=== PATIENT | female | born 2000 ===

== ENCOUNTER 2021-08-14 20:31 | Emergency (ER) | payer SELFPAY ==
[2021-08-14] MEDS ORDERED: IBUPROFEN 800 MG TAB PO ONE (23:04)
--- NOTE | 2021-08-14 23:23 | Emergency Department Report ---
ED General Adult HPI - General Chief complaint: Sore Throat Stated complaint: SOMETHING IN THROAT Time Seen by Provider: 08/14/21 23:02 Source: patient Mode of arrival: Ambulatory Limitations: No Limitations - History of Present Illness Initial comments: Patient 20-year-old -[place] female who presents for foreign body sensation in the throat. States she cannot remember eating suspicious food i.e. fish or chicken bones or other. There is no shortness of breath, no wheezing, no stridor. Patient is tolerating p.o. intake without dysphagia. There is no swelling no fever. Patient denies ear or sinus pain or pressure. There is no cough. No history of asthma or bronchitis. Patient appears well well-hydrated well-nourished with no acute distress at this time. Patient describes sensation as a tickle rated at 3/10 intermittent. However there are no exacerbating factors.. Severity scale (0 -10): 4 - Related Data Previous Rx's Medication Instructions Recorded Last Taken Type Benzocaine/Menthol [Cepacol Sore 1 each MM Q4H PRN #20 lozenge 08/14/21 Unknown Rx Throat Lozenge] Ibuprofen [Motrin 800 MG tab] 800 mg PO Q8HR PRN #30 tablet 08/14/21 Unknown Rx Allergies Allergy/AdvReac Type Severity Reaction Status Date / Time No Known Allergies Allergy Unverified 08/14/21 21:26 ED Review of Systems ROS: Stated complaint: SOMETHING IN THROAT Other details as noted in HPI Constitutional: denies: chills, fever Eyes: denies: eye pain, eye discharge, vision change ENT: throat pain. denies: ear pain, dental pain, hearing loss, congestion Respiratory: denies: cough, shortness of breath, wheezing Cardiovascular: denies: chest pain, palpitations Endocrine: no symptoms reported Gastrointestinal: denies: abdominal pain, nausea, diarrhea Genitourinary: denies: urgency, dysuria, discharge Musculoskeletal: denies: back pain, joint swelling, arthralgia Skin: denies: rash, lesions Neurological: denies: headache, weakness, paresthesias, vertigo Psychiatric: denies: anxiety, depression Hematological/Lymphatic: denies: easy bleeding, easy bruising ED Past Medical Hx - Medications Home Medications: Home Medications Medication Instructions Recorded Confirmed Last Taken Type Benzocaine/Menthol [Cepacol Sore 1 each MM Q4H PRN #20 lozenge 08/14/21 Unknown Rx Throat Lozenge] Ibuprofen [Motrin 800 MG tab] 800 mg PO Q8HR PRN #30 tablet 08/14/21 Unknown Rx ED Physical Exam - General Limitations: No Limitations General appearance: alert, in no apparent distress - Head Head exam: Present: normocephalic, normal inspection - Eye Eye exam: Present: normal appearance, PERRL, EOMI Pupils: Present: normal accommodation - ENT ENT exam: Present: normal orophraynx, mucous membranes moist, TM's normal bilaterally, normal external ear exam - Expanded ENT Exam Expanded Mouth exam: Absent: trismus Teeth exam: Present: normal inspection Throat exam: Positive: other (Airway is patent no lesions no exudate no stridor uvula is midline.). Negative: tonsillar erythema, tonsillomegaly, tonsillar exudate - Neck Neck exam: Present: normal inspection, full ROM. Absent: tenderness, meningismus, lymphadenopathy, thyromegaly - Expanded Neck Exam Expanded Neck exam: Absent: midline deformity, anterior neck swelling, thyroid mass, carotid bruit, tracheal deviation - Respiratory Respiratory exam: Present: normal lung sounds bilaterally. Absent: wheezes, stridor, chest wall tenderness - Cardiovascular Cardiovascular Exam: Present: regular rate, normal rhythm, normal heart sounds. Absent: systolic murmur, diastolic murmur, rubs, gallop - GI/Abdominal GI/Abdominal exam: Present: soft, normal bowel sounds. Absent: distended, tenderness - Rectal Rectal exam: Present: deferred - Extremities Exam Extremities exam: Present: normal inspection, full ROM, normal capillary refill - Back Exam Back exam: Present: normal inspection, full ROM. Absent: tenderness - Neurological Exam Neurological exam: Present: alert, oriented X3, CN II-XII intact, normal gait - Expanded Neurological Exam Expanded Patient oriented to: Present: person, place, time Speech: Present: fluid speech Cranial nerves: Gag Reflex: Normal Best Eye Response ([place]): (4) open spontaneously Best Motor Response ([place]): (6) obeys commands Best Verbal Response ([place]): (5) oriented [place] Total: 15 - Psychiatric Psychiatric exam: Present: normal affect, normal mood - Skin Skin exam: Present: warm, dry, intact, normal color. Absent: rash ED Course Vital Signs 08/14/21 08/14/21 08/14/21 21:28 21:36 23:12 Temperature 98.3 F 98.3 F Pulse Rate 92 H 92 H Respiratory 20 20 14 Rate Blood Pressure 131/67 131/67 [Right] O2 Sat by Pulse 100 100 Oximetry ED Medical Decision Making - Radiology Data Radiology results: report reviewed, image reviewed NECK SOFT TISSUE 2 VIEW(S) INDICATION / CLINICAL INFORMATION: r/o foreign body throat COMPARISON: None available. FINDINGS: EPIGLOTTIS: No significant abnormality. RETROPHARYNGEAL SOFT TISSUES: No significant abnormality. AIRWAY: No significant abnormality. RADIOPAQUE FOREIGN BODY: None. SKELETAL SYSTEM: No significant abnormality. ADDITIONAL FINDINGS: None. IMPRESSION: 1. No radiopaque foreign body. Signer Name: Skinny Mccoy II, MD Signed: 08/14/2021 11:38 PM Workstation Name: [id number] Transcribed By: ANALISA Dictated By: SKINNY MCCOY II, MD Electronically Authenticated By: SKINNY MCCOY II, MD Signed Date/Time: 08/14/212337 DD/ 36 TD/TT: Print - Medical Decision Making X-ray soft tissue neck normal no radiopaque foreign body. Patient is tolerating p.o. intake there is no dysphagia there is no fevers no chills no ear pain no sinus pain or pressure. Plan NSAIDs as needed, follow-up with primary care doctor in 2 to 3 days. Return to emergency department should symptoms worsen. Patient verbalized agreement and understanding with discharge plan. Patient DC'd home in stable condition at this time. Critical care attestation.: If time is entered above; I have spent that time in minutes in the direct care of this critically ill patient, excluding procedure time. ED Disposition Clinical Impression: Pharyngitis Qualifiers: Pharyngitis/tonsillitis etiology: unspecified etiology Qualified Code(s): J02.9 - Acute pharyngitis, unspecified Disposition: 01 HOME / SELF CARE / HOMELESS Is pt being admited?: No Does the pt Need Aspirin: No Condition: Stable Instructions: Pharyngitis Additional Instructions: Take ibuprofen as needed for pain. Drink warm liquids and throat lozenges as directed. Follow-up with your doctor in 2 to 3 days. Return to emergency department should symptoms worsen. Prescriptions: Benzocaine/Menthol [Cepacol Sore Throat Lozenge] 1 each MM Q4H PRN #20 lozenge PRN Reason: throat pain Ibuprofen [Motrin 800 MG tab] 800 mg PO Q8HR PRN #30 tablet PRN Reason: pain Referrals: MIKE REESE MD [Staff Physician] - 3-5 Days Forms: Work/School Release Form(ED) Time of Disposition: 23:50
--- NOTE | 2021-08-14 23:42 | XRay Report ---
NECK SOFT TISSUE 2 VIEW(S) INDICATION / CLINICAL INFORMATION: r/o foreign body throat COMPARISON: None available. FINDINGS: EPIGLOTTIS: No significant abnormality. RETROPHARYNGEAL SOFT TISSUES: No significant abnormality. AIRWAY: No significant abnormality. RADIOPAQUE FOREIGN BODY: None. SKELETAL SYSTEM: No significant abnormality. ADDITIONAL FINDINGS: None. IMPRESSION: 1. No radiopaque foreign body. Signer Name: Keith Mccoy II, MD Signed: 08/14/2021 11:38 PM Workstation Name: [id number]
[2021-08-15 00:18] VITALS: BP 118/75
== END 2021-08-15 00:13 | disposition home or self-care (01) ==
LOC: ED 20:31
DX: J02.9 Acute pharyngitis, unspecified (principal)
CPT/HCPCS: 70360; 99283